=== PATIENT | female | born 1975 | race Caucasian/White ===

== ENCOUNTER 2024-04-11 07:05 | Emergency (ER) | payer MEDICAID, SELFPAY ==
[2024-04-11 07:11] VITALS: BP 115/83; PULSE 91; TEMP 37.1; O2SAT 99; BMI 21.1
--- NOTE | 2024-04-11 07:15 | XR_ITS ---
The [address] [address] Patient Name: GREGORIO ANDERSEN MRN: [id number] date: 1975 Sex: F Assigned Patient Location: ER Current Patient Location: ER Accession/Order Number: [id number] Exam Date: 04/11/2024 07:30 Report Date: 04/11/2024 08:13 At the request of: BARBARA ESPINAL Procedure: XR ankle LT min 3V PROCEDURE: XR ankle LT min 3V DATE: 04/11/2024 6:30 AM CDT COMPARISONS: None CLINICAL INDICATION: Pain, twisted FINDINGS: There is no evidence of fractures or other osseous abnormalities. The ankle mortise is intact. Slightly heterogeneous, prominent soft tissue swelling is noted of the lateral ankle XR/XR ankle LT min 3V IMPRESSION: Left ankle radiographs show no evidence of acute osseous abnormalities. Electronically authenticated by: PORFIRIO SALGADO Date: 04/11/2024 08:13
--- NOTE | 2024-04-11 07:15 | XR_ITS ---
The [address] [address] Patient Name: GREGORIO ANDERSEN MRN: [id number] date: 1975 Sex: F Assigned Patient Location: ER Current Patient Location: ER Accession/Order Number: [id number] Exam Date: 04/11/2024 07:30 Report Date: 04/11/2024 08:11 At the request of: BARBARA ESPINAL Procedure: XR foot RT min 3V PROCEDURE: XR foot RT min 3V DATE: 04/11/2024 6:30 AM CDT COMPARISONS: None CLINICAL INDICATION: Pain, swelling FINDINGS: There is deformity of the proximal fifth metatarsal. Osseous fragments involve approximately a 10 mm area. There are scattered lucencies within the osseous fragments. The findings likely represent comminuted fracture of the most proximal aspect of the fifth metatarsal. It's possible this represents a combination of acute fracture and some old accessory ossicles in this area. Postop changes are noted of the distal first metatarsal No other osseous abnormalities are identified.. XR/XR foot RT min 3V IMPRESSION: Deformity of the most proximal aspect of the fifth metatarsal likely represent slightly distracted minimally displaced acute fracture. It's possible some of the deformity is related to associated old accessory ossicle or ossicles in this area. Electronically authenticated by: PORFIRIO SALGADO Date: 04/11/2024 08:11
--- NOTE | 2024-04-11 07:17 | ED_ITS ---
HPI HPI - Extremity Injury (Lower) General Chief Complaint: Extremity Injury, Lower Stated Complaint: lower extremity injury Time Seen by Provider: 04/11/24 07:11 Source: patient Mode of arrival: Wheelchair Limitations: no limitations History of Present Illness HPI Narrative: 48-year-old female presents to the emergency department for pain in the left ankle and right foot. 6 hours ago she states she twisted it, she was drinking alcohol. She states that alcohol is wearing off and now it is hurting. She has been walking on it and no other injury was sustained. The pain is moderate. She points to the left lateral malleolus and that lateral aspect of the right foot. Related Data Previous Rx's ?Medication ?Instructions ?Recorded acetaminophen 300 mg-codeine 30 mg 1 tab PO Q6H PRN pain 5 days #20 04/11/24 tablet tabs Allergies Allergy/AdvReac Type Severity Reaction Status Date / Time No Known Drug Allergies Allergy Verified 04/11/24 07:13 Opioid HPI Opioid Management Most Recent Pain and Opioid Data: Last ED Pain Assessment 04/11/24 07:14 Review of Systems ROS Narrative A ten point review of systems is negative except as noted above. Exam Narrative Exam Narrative: Nurses note and vital signs reviewed and patient is not hypoxic. General: The patient appears well and in no apparent distress. Patient is resting comfortably on cart. Skin: Warm, dry, no pallor noted. There is no rash noted. Head: Normocephalic, atraumatic Eye: Normal conjunctiva, no drainage Ears, Nose, Mouth, and Throat: oral mucosa is moist. Nares patent. Cardiovascular: Regular Rate and Rhythm Respiratory: Patient is in no distress, no accessory muscle use GI: Nontender Musculoskeletal: Swelling and tenderness present at the left lateral malleolus and the lateral aspect of her right foot. The right ankle is not tender in the left foot is not tender. Neurological: Awake and alert Psychiatric: Cooperative Constitutional Vital Signs, click to edit/add: Last Vital Signs Temp 98.7 F 04/11/24 07:11 Pulse 91 H 04/11/24 07:11 Resp 18 04/11/24 07:11 BP 115/83 04/11/24 07:11 Pulse Ox 99 04/11/24 07:11 O2 Del Method Room Air 04/11/24 07:11 Course Vital Signs Vital signs: Vital Signs Temperature 98.7 F 04/11/24 07:11 Pulse Rate 91 H 04/11/24 07:11 Respiratory Rate 18 04/11/24 07:11 Blood Pressure 115/83 04/11/24 07:11 Pulse Oximetry 99 04/11/24 07:11 Oxygen Delivery Method Room Air 04/11/24 07:11 Temperature 98.7 F 04/11/24 07:11 Pulse Rate 91 H 04/11/24 07:11 Respiratory Rate 18 04/11/24 07:11 Blood Pressure 115/83 04/11/24 07:11 Pulse Oximetry 99 04/11/24 07:11 Oxygen Delivery Method Room Air 04/11/24 07:11 MDM - Extremity Injury (Lower) MDM Narrative Medical decision making narrative: Fifth metatarsal fracture is identified, right foot. She has no previous fracture of that foot. She will follow-up with podiatry and she was prescribed Tylenol 3. Treatment diagnosis and follow-up were discussed with the patient. Short leg posterior splint placed on the right leg for the metatarsal fracture by me. Application checked and she is neurovascularly intact. She is also placed on crutches. Differential Diagnosis Differential diagnosis: Likely ankle sprain and strain, ankle fracture and other (Foot fracture) Imaging Data Foot, ankle: Radiologist's impression: ITS Impressions Ankle X-Ray 04/11/24 07:15 IMPRESSION: Left ankle radiographs show no evidence of acute osseous abnormalities. Electronically authenticated by: PORFIRIO SALGADO Date: 04/11/2024 08:13 Foot X-Ray 04/11/24 07:15 IMPRESSION: Deformity of the most proximal aspect of the fifth metatarsal likely represent slightly distracted minimally displaced acute fracture. It's possible some of the deformity is related to associated old accessory ossicle or ossicles in this area. Electronically authenticated by: PORFIRIO SALGADO Date: 04/11/2024 08:11 Discharge Plan Discharge Stand Alone Forms: Portal Instructions Chief Complaint: Extremity Injury, Lower Clinical Impression: Metatarsal fracture Patient Disposition: Home, Self-Care Time of Disposition Decision: 08:25 Condition: Good Mode of Transportation: Private Vehicle Prescriptions / Home Meds: New acetaminophen-codeine 300-30 mg tablet 1 tab PO Q6H PRN (Reason: pain) 5 Days Qty: 20 0RF Print Language: Monegasque Instructions: Crutch Instructions (ED), Foot Fracture in Adults (ED) Additional Instructions: Follow-up with Dr. Rapp Referrals: Physician,Non-Staff, [Primary Care Provider] - 1 week Jf Rapp DPM [Physician] - 1 week
[2024-04-11 08:35] VITALS: BP 97/63; PULSE 69; O2SAT 100
== END 2024-04-11 08:49 | disposition home or self-care (01) ==
PROVIDERS: Emergency Provider Emergency Medicine
DX: S92.351A Displaced fracture of fifth metatarsal bone, right foot, initial encounter for closed fracture (principal); X50.1XXA Overexertion from prolonged static or awkward postures, initial encounter
CPT/HCPCS: 29515; 73610; 73630; 99283

== ENCOUNTER 2024-04-15 15:28 | Outpatient (OUT) | payer MEDICAID, SELFPAY ==
--- NOTE | 2024-04-15 | XR_ITS ---
The [address] [address] Patient Name: GREGORIO ANDERSEN MRN: [id number] date: 1975 Sex: F Assigned Patient Location: Current Patient Location: Accession/Order Number: [id number] Exam Date: 04/15/2024 15:29 Report Date: 04/16/2024 06:15 At the request of: MAGALIE MUSE Procedure: XR ankle RAJNI min 3V EXAMINATION: XR ankle RAJNI min 3V HISTORY: BILATERAL ANKLE PAIN COMPARISON: XR ankle left 04/03/2024, XR foot right 04/11/2024 FINDINGS: RIGHT FINDINGS: BONES: Corticated ossification adjacent tip of lateral malleolus. Fracture line at base of 5th metatarsal with 1 mm displacement. Intact, uniform ankle joint space. SOFT TISSUES: No visible soft tissue swelling. OTHER: Negative. LEFT FINDINGS: BONES: No significant arthropathy or acute abnormality. SOFT TISSUES: No visible soft tissue swelling. OTHER: Negative. XR/XR ankle RAJNI min 3V IMPRESSION: RIGHT CONCLUSION: 1. Known base of 5th metatarsal fracture without radiographic evidence of bone healing at this time. 2. Separate ossification at tip of lateral malleolus favoring sequela of remote injury. No comparison studies showing this area. LEFT CONCLUSION: 1. No acute or suspicious bone abnormality. Electronically authenticated by: BILLY DEMPSEY Date: 04/16/2024 06:15
--- OUTSIDE RECORDS SUMMARY | 2024-04-15 15:49 | XMS_ITS | CCD ---
Author Organization [facility] Care Team Providers Care Wedding Planner Name Role Phone AMY AMOS Unavailable Unavailable PERLA MONCADA Admitting Unavailable PERLA MONCADA Attending Unavailable MISC, DOCTOR Primary Care Unavailable CORAL, PERLA Admitting Unavailable CORAL, PERLA Attending Unavailable MISC, DOCTOR Primary Care Unavailable OLIVER MARION V Consulting Unavailable JONATHAN RUBIO Consulting Unavailable PERLA MONCADA Consulting Unavailable ARGELIA MACE Consulting Unavailable CORAL, PERLA Admitting Unavailable CORAL, PERLA Attending Unavailable CORAL, PERLA Admitting Unavailable PERLA MONCADA Attending Unavailable MISC, DOCTOR Primary Care Unavailable OLIVER MARION V Consulting Unavailable PERLA MONCADA Consulting Unavailable PROVIDER, UNKNOWN Attending Unavailable PROVIDER, UNKNOWN Admitting Unavailable Problems Active Problems Problem Classification Problem Date Documented Da te Episodic/Chronic Acquired foot deformities (6 sources) Hallux valgus (acquired), right foot; Translations: [Other hammer toe(s) (acquired), right foot] Onset: 09-20-2019 Chronic Acquired foot deformities (1 source) Acquired deformities of toe(s), unspecified, right foot; Translations: [ACQ DEFORMITIES TOES UNS RT FOOT] Onset: 09-29-2019 Episodic Phlebitis; thrombophlebitis and thromboembolism (4 sources) Acute embolism and thrombosis of unspecified deep veins of right lower extremity; Translations: [AC EMBO THROMB UNS DP VNS RT LW EXT] Onset: 10-07-2019 Episodic Substance-related disorders (1 source) Nicotine dependence, cigarettes, uncomplicated; Translations: [NICOTINE DEPEND CIGARETTES UNCOMP] Onset: 09-29-2019 Chronic Unclassified (1 source) Unknown / UNK(Unknown) Onset: 08-25-2017 Past or Other Problems Problem Classification Problem Date Documented Da te Episodic/Chronic Skin and subcutaneous tissue infections (1 source) Cellulitis of right finger; Translations: [Cellulitis of right finger] Onset: 04-11-2017 Episodic Spondylosis; intervertebral disc disorders; other back problems (1 source) Low back pain; Translations: [Low back pain] Onset: 11-14-2017 Episodic Results Test Name Value Interpretation Reference Range Facility US PEDRO DOP LEG RTon 10-07-19 20 US PEDRO DOP LEG RT Patient: NAV ANDERSEN Exam Date: 10/07/2019 : 1975 Gender:F Ordering : DR. PERLA Melton.P.M. Admission #: [id number] Family : Order #: [id number] CLICK HERE TO VIEW EXAM RADIOLOGY REPORT PROCEDURE: ULTRASOUND VENOUS DOPPLER LEG RIGHT COMPARISON: None. INDICATIONS: Acute deep venous thrombosis of right lower extremity; acute right calf pain for 4 days; right bunionectomy 2 weeks ago TECHNIQUE: Lower extremity moy scale and Duplex Doppler evaluation of the deep venous system from the inguinal ligament through the calf veins. FINDINGS: REGION: Right lower extremity. THROMBI: None. COMPRESSIBILITY: Normal compressibility. FLOW: Normal waveform and antegrade flow between 5 and 20 cm/s. *Exam performed in accordance with [facility] practice guidelines- Peripheral venous ultrasound, December 09, 2009. CONCLUSION: 1. No deep vein thrombus in the right leg Dictated by: Oliver Marion M.D. on 10/07/2019 at 12:07 Approved by: Oliver Marion M.D. on 10/07/2019 at 12:07 Normal [facility] PREG HCG QUALon 09-23-2019 , QUAL Negative Normal NEGATIVE [facility] Comment on above: Performed By: #### PREG #### [facility] [address] [place] [address] Fabricio Ford XR FOOT RT 2Von 09-23-2019 XR FOOT RT 2V Patient: YAMILKA ANDERSEN Exam Date: 09/23/2019 : 1975 Gender:F Ordering : DR. PERLA MONCADA D.P.M. Admission #: [id number] Family : Order #: [id number] CLICK HERE TO VIEW EXAM RADIOLOGY REPORT PROCEDURE: RADIOGRAPH FOOT RIGHT 2 VIEWS COMPARISON: None. INDICATIONS: Acquired right hallux valgus. Intraoperative imaging for right first metatarsal Milana bunionectomy. FINDINGS: Two intraprocedural fluoroscopic images demonstrate oblique osteotomy of the distal 1st metatarsal with placement of a single screw. No acute fracture or dislocation. CONCLUSION: 1. Distal 1st metatarsal osteotomy Dictated by: Oliver Marion M.D. on 09/23/2019 at 10:22 Approved by: Oliver Marion M.D. on 09/23/2019 at 10:23 [facility] XR FOOT RT 2V Patient: YAMILKA ANDERSEN Exam Date: 09/23/2019 : 1975 Gender:F Ordering : DR. PERLA YuanPEvangelina Admission #: [id number] Family : Order #: [id number] CLICK HERE TO VIEW EXAM RADIOLOGY REPORT PROCEDURE: RADIOGRAPH FOOT RIGHT 2 VIEWS COMPARISON: XR FOOT RT 2V, 09/23/2019. INDICATIONS: Post operative imaging for right foot bunionectomy FINDINGS: BONES: Osteotomy/bunionectomy of the 1st metatarsal with securement of the fragments via a single screw. SOFT TISSUES: Soft tissue swelling and subcutaneous air at the surgical site. OTHER: Negative. CONCLUSION: 1. Surgical changes which appear stable compared to intraoperative images. Dictated by: Jonathan Rubio M.D. on 09/23/2019 at 11:28 Approved by: Jonathan Rubio M.D. on 09/23/2019 at 11:29 [facility] ED NOTEon 11-14-2017 ED NOTE HNO ID: [id number] thor: Oneil PittsRnMaryellen Nina RNService: (none)Author Type: Registered NurseType: ED NotesFiled: 11/13/2017 11:00 PMNote Text:Discharge instructions reviewed with pt. Pt verbalizes understanding ofinstructions, medications, follow up care and reasons to return to theemergency department. Pt verbalizes understanding by teach back methodand all questions/ concerns answered to the best of my ability. Ptdischarged in stable condition. [facility] ED NOTE HNO ID: [id number] thor: Oneil PittsRn) JERONIMO Ninaervice: (none)Author Type: Registered NurseType: ED NotesFiled: 11/13/2017 10:17 PMNote Text: I have reviewed the ED Triage information and verify it to be accurate.Plan of care-Monitor Patient's Vital Signs for changes in condition-Monitor patient for changes in pain-Maintain patient safety and privacy-Provide comfort measures-Call light in placeSiderails up, bed in locked and low position [facility] ED NOTE HNO ID: [id number] thor: Manuela (Rn) Selene RNService: (none)Author Type: Registered NurseType: ED NotesFiled: 11/13/2017 10:06 PMNote Text:Patient arrived through triage states that she was driving home withfiance to [place] and complains of severe lower back pain unrelieved bytylenol.Plan of care-Monitor Patient's Vital Signs for changes in condition-Monitor patient for changes in pain-Maintain patient safety and privacy-Provide comfort measures-Call light in placeSiderails up, bed in locked and low position [facility] ED PROV NOTEon 11-14-2017 ED PROV NOTE HNO ID: [id number] thor: Kiara Gill) KhalifinoService: Emergency MedicineAuthor Type: Physician AssistantType: ED Provider NotesFiled: 11/13/2017 10:45 PMNote Text:ED Provider NotePatient Name: Nav AndersenMRN: [id number] DATE: 11/13/17HistoryPatient presents with:Back PainHPI Comments: 42 y/o female smoker presents to the ED with right sided lowback pain x 2 days. Pain is constant and worse with movement. She statesit is located right sided and does not radiate. No associated numbness ortingling. Tried tylenol and percocet with only slight improvement. Deniesfevers, chills, saddle anesthesia, bowel incontinence, urinary retention,current IV drug use, history of cancer.History provided by: Patient and medical recordsLanguage gun numberer used: NoNo past medical history on file.No past surgical history on file.No family history on file.Social HistorySocial History Main Topics- Smoking status: Current Every Day Smoker Packs/day: 0.50 Types: Cigarettes- Smokeless tobacco: Never Used- Alcohol use Yes Comment: occasionally- Drug use: Yes Special: Marijuana Comment: occasionally- Sexual activity: Not AskedALLERGIESNo Known AllergiesReview of SystemsConstitutional: Negative for chills and fever.Genitourinary: Negative for difficulty urinating.Musculoskeletal: Positive for back pain. Negative for arthralgias,myalgias, neck pain and neck stiffness.Skin: Negative for rash and wound.Allergic/Immunologic: Negative for immunocompromised state.Neurological: Negative for dizziness, weakness and light-headedness.Physical ExamBP 140/73 Pulse 88 Temp (Src) 97.2 (Temporal Artery) Resp 18 Wt145 lb (65.8kg) SpO2 100% LMP 11/05/2017Physical ExamConstitutional: She is oriented to person, place, and time. She appearswell-developed and well-nourished.Cardiovascular : Intact distal pulses.Musculoskeletal: Cervical back: She exhibits normal range of motion, no tenderness, nobony tenderness and no pain. Thoracic back: She exhibits normal range of motion, no tenderness, nobony tenderness and no pain. Lumbar back: She exhibits decreased range of motion, tenderness andpain. She exhibits no bony tenderness, no deformity and no spasm. Back:Neurological: She is alert and oriented to person, place, and time.Strength and sensation equal bilateral lower extremities. Patellarreflexes equal bilaterally. No gait abnormalities.Skin: Skin is warm. No rash noted.Nursing note and vitals reviewed.Diagnostic TestingED Labs Ordered and Reviewed - No data to displayProceduresMedical Decision Making / ED CourseED [id number] y/o female presents to the ED with right sided low back pain. Vitalsreviewed, afebrile. Medicated with toradol, norflex, lidoderm in the ED.Low suspicion for cauda equina or epidural abscess as patient deniesfevers, chills, saddle anesthesia, bowel incontinence, urinary retention,current IV drug use, history of cancer. Encouraged close follow up withP. Return precautions discussed.Encounter Diagnosis ICD-10-CM1. Acute right-sided low back pain without sciatica M54.5PlanThe Patient was DISCHARGED: Counseled patient regarding suspecteddiagnosis AND need for follow-up. Discharged home with verbal and writteninstructions. They were instructed to return as needed for persistent orworsening symptoms or any new concerns.Given a prescription for the following medication(s): naprosyn, flexerilCondition at time of disposition: stableSIGNATURE: Maykel Wright (Jesus) Linmxrfu50/01/18 5143 [facility] ED NOTEon 08-25-2017 ED NOTE HNO ID: [id number] Author: Sherrie PittsRn) JAG Grubbs Service: Nursing Author Type: Registered Nurse Type: ED Notes Filed: 08/25/2017 9:59 PM Note Text: Called pt, no answer [facility] ED NOTE HNO ID: [id number] Author: Sherrie PittsRn) JAG Grubbs Service: Nursing Author Type: Registered Nurse Type: ED Notes Filed: 08/25/2017 7:56 PM Note Text: Pt called from lobby with no answer. Will try again in 5 minutes. [facility] ED NOTE HNO ID: [id number] thor: Sherrie PittsRn) Ronnell Grubbsice: NursingAuthor Type: Registered NurseType: ED NotesFiled: 08/25/2017 6:59 PMNote Text:Pt has multiple wounds on her left thumb, right axillary area, occipitalregion right side of head. 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 Pt need a PCP.BP 115/75 Pulse (!) 101 Temp (!) 3 ?C (37.4 ?F) (Tympanic) Resp 16 LMP 08/04/2017 SpO2 99%Plan of care-Monitor Patient's Vital Signs for changes in condition-Monitor patient for changes in pain-Maintain patient safety and privacy-Provide comfort measures-Call light in placeSiderails up, bed in locked and low position [facility] ED NOTEon 04-11-2017 ED NOTE HNO ID: [id number] thor: Odilia (Rn) Connie Bustillo: (none)Author Type: Registered NurseType: ED NotesFiled: 04/11/2017 3:01 PMNote Text: Discussed discharge instructions with pt including new prescriptions andimportance of follow up with PCP. Education provided including s/s toreturn to ER. Pt verbalized understanding. Pt resp even and unlabored withno s/s of distress noted. Pt able to speak in complete sentences withoutdifficulty. All questions answered and pt denies any needs at this time.Pt ambulatory with steady gait on departure. [facility] ED NOTE HNO ID: [id number] thor: Odilia PittsRn) Bustillo, RNService: (none)Author Type: Registered NurseType: ED NotesFiled: 04/11/2017 2:09 PMNote Text:Patient presents to the Ed for Right Thumb swelling. Patient states thatabout a week ago she began to have some swelling and pain. Patient statesthat yesterday the swelling got worse. Patient states that she was seen inan ED yesterday and they attempted an IANDD. Patient was given Keflexscript. Today patient states that it is more swollen. Patient states thatshe has had 4 doses of the Keflex.Plan of care-Monitor Patient's Vital Signs for changes in condition-Monitor patient for changes in pain-Maintain patient safety and privacy-Provide comfort measures-Call light in placeSiderails up, bed in locked and low position [facility] ED PROV NOTEon 04-11-2017 ED PROV NOTE HNO ID: [id number] thor: Amy Amos, DOService: Emergency MedicineAuthor Type: PhysicianType: ED Provider NotesFiled: 04/11/2017 2:54 PMNote Text:ED Provider NotePatient Name: Nav VargheseMRN: [id number] DATE: 04/11/17HistoryPatient presents with:Finger Injury: Right thumb swelling.HPI Comments: Complain of right thumb swollen with pain times one weekwith no injury, she thinks she had a hangnail that started all, she wasseen yesterday at another emergency room where they performed an incisionand drainage, placed her on Keflex, she states it still hurts, she hastaken Tylenol and ibuprofen for pain and that is not helping.Patient is a 41 year old female presenting with edema.History provided by: PatientEdemaLocation: Right thumbSeverity: ModerateOnset quality: GradualDuration: 1 weekTiming: ConstantProgression: UnchangedChronicity: NewContext: Right thumb pain, atraumaticWorsened by: Touching itIneffective treatments: Keflex, ibuprofen, TylenolAssociated symptoms: no abdominal pain, no chest pain, no congestion, nocough, no diarrhea, no ear pain, no fatigue, no fever, no headaches, noloss of consciousness, no myalgias, no nausea, no rash, no rhinorrhea, noshortness of breath, no sore throat, no vomiting and no wheezingNo past medical history on file.No past surgical history on file.No family history on file.Social HistorySocial History Main Topics- Smoking status: Not on file- Smokeless tobacco: Not on file- Alcohol use Not on file- Drug use: Not on file- Sexual activity: Not on fileALLERGIESNo Known AllergiesReview of SystemsConstitutional: Negative for fatigue and fever.HENT: Negative for congestion, ear pain, rhinorrhea and sore throat.Eyes: Negative.Respiratory: Negative for cough, shortness of breath and wheezing.Cardiovascular: Negative for chest pain.Gastrointestinal: Negative for abdominal pain, diarrhea, nausea andvomiting.Endocrine: Negative.Genitourinary: Negative.Musculoskeletal: Negative for myalgias. Right thumb pain, infectionSkin: Negative for rash.Neurological: Negative for loss of consciousness and headaches.Physical ExamBP 106/52 Pulse 96 Temp (Src) 98.2 (Oral) Resp 18 Ht 5' 7 (1.70m) Wt 143 lb (64.9kg) SpO2 98% BMI 22.39 kg/(m2).Physical ExamConstitutional: She is oriented to person, place, and time. She appearswell-developed and well-nourished.HENT:Head: Normocephalic and atraumatic.Eyes: Conjunctivae and EOM are normal. Pupils are equal, round, andreactive to light.Neck: Normal range of motion. Neck supple.Cardiovascular: Normal rate, regular rhythm and normal heart sounds.Pulmonary/Chest: Effort normal and breath sounds normal. No respiratorydistress. She has no wheezes. She has no rales.Abdominal: Soft. Bowel sounds are normal. She exhibits no distension.There is no tenderness.Musculoskeletal: Normal range of motion. She exhibits no tenderness.Neurological: She is alert and oriented to person, place, and time.Skin:Right thumb-there is pain to palpation with mild swelling generalized atthe distal aspect of the thumb and more predominate at the medial nailplate, there is slight fluctuance and erythema, there is a healingincision noted just to the nail plate.Psychiatric: She has a normal mood and affect. Her behavior is normal.Nursing note and vitals reviewed.Diagnostic TestingED Labs Ordered and Reviewed - No data to displayProceduresMedical Decision Making / ED CourseED Course patient medical record reviewed.Cellulitis distal aspect of right thumb, changing antibiotic from Keflexto Bactrim for MRSA coverage, follow-up with primary care physician withinone week and return if symptoms change or worsen. Soak in warm water atleast 6-8 times per dayEncounter Diagnosis ICD-10-CM1. Cellulitis of right thumb L03.011PlanThe Patient was dischargedCondition at time of disposition: stableSIGNATURE: Kimberly Mcintosh [facility], DO04/11/17 1438Robasim Melton [facility] DO04/11/17 1454 [facility] Encounters Encounter Date Encounter Type Care Provider Facility Start: 10-07-2019 End: 10-08-2019 Patient encounter procedure PERLA MONCADA Facility:[facility] Start: 10-05-2019 Patient encounter procedure PERLA MONCADA Facility:[facility] Start: 09-23-2019 End: 09-23-2019 Patient encounter procedure PERLA MONCADA Facility:[facility] Start: 09-20-2019 Encounter for other preprocedural examination PERLA MONCADA [facility] Start: 09-10-2019 End: 09-11-2019 Patient encounter procedure PERLA CORAL Facility:[facility] Start: 09-30-2018 End: 10-01-2018 ambulatory UNKNOWN PROVIDER Facility:[facility] Start: 11-14-2017 End: 11-14-2017 Emergency department patient visit [facility] Start: 08-25-2017 End: 08-26-2017 Emergency department patient visit [facility] Start: 04-11-2017 End: 04-11-2017 Emergency department patient visit [place] [facility] Encounter for other preprocedural examination PERLA MONCADA [facility] Procedures Date Procedure Procedure Detail Performing Clinician Start: 09-30-2018 Skin test tuberculos is intradermal UNKNOWN PROVIDER Start: 09-30-2018 Urine test visual color cmprsn meths UNKNOWN PROVIDER Payers Date Payer Category Payer [id number] 2017 [id number] 1975 Unknown [id number] [id number] [id number] 1975 Unknown [id number] 2.16.84 [id number] 1975 Unknown [id number] 2.16.84 [id number] 1977 Unknown [id number] 2.16.84 [id number] 1959 Unknown [id number] 1949 Unknown [id number] Summary Purpose Family History No Family History Records FoundNo Family History Records FoundNo Family History Records Found Advance Directives No Advanced Directives Records FoundNo Advanced Directives Records FoundNo Advanced Directives Records Found Procedure Findings Note OPERATIVE NOTE OPERATION DEJUAN E: 09-23-19 ANESTHETIC:General. 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 POSTOPERATIVE DIAGNOSIS:Same as above. PROCEDURE NAME: 1. Right Milana bunionectomy with screw fixation. 2. Right fifth PIPJ arthroplasty. PATHOLOGY:Bone from right first metatarsal and right fifth digit. HEMOSTASIS:250 mmHg right ankle tourniquet for 61 minutes. ESTIMATED BLOOD LOSS: None. MATERIALS: 3-0 Vicryl, 4-0 Vicryl, 4-0 Nylon, 3.0 mm x 16 mm Litzy titanium Asnis screw. INJECTABLES:10 mL of 0.5% Sensorcaine plain. PROCEDURE: The patient was brought into the OR and placed on the OR table in the supine position. Ankle tourniquet was then placed around the patient's right ankle. Following IV sedation the foot was scrubbed, prepped, and draped in the usual sterile manner. An Esmarch bandage was then utilized to exsanguinate the patient's right foot and tourniquet inflated to 250 mmHg for a total of 61 minutes. Attention was then directed to the first met (more content not included)... Additional Source Comments INFORMATION SOURCE (unrecogn ized section and content) DATE CREATED AUTHOR 03/06/2018 Kelley Martines[facility] al DATE CREATED AUTHOR AUTHOR'S ORGANIZ ATION 11/05/2019 [facility] DATE CREATED AUTHOR AUTHOR'S ORGANIZ ATION 11/04/2021 [employer] FOR RECORDS PERTAINING TO PATIENTS WHO ARE OR HAVE BEEN ENROLLED IN A CHEMICAL DEPENDENCY/SUBSTANCEABUSE PROGRAM, SOME INFORMATION MAY BE OMITTED. This clinical summary was aggregated from multiple sources. Caution should be exercised in using it in the provision of clinical care. This summary normalizes information from multiple sources, and as a consequence, information in this document may materially change the coding, format and clinical context of patient data. In addition, data may be omitted in some cases. CLINICAL DECISIONS SHOULD BE BASED ON THE PRIMARY CLINICAL RECORDS. [facility] [employer], [facility]. provides no warranty or guarantee of the accuracy or completeness of information in this document.
== END 2024-04-15 15:29 | disposition home or self-care (01) ==
LOC: EC 15:29
PROVIDERS: Visit Provider Physician Assistant
DX: M25.571 Pain in right ankle and joints of right foot (principal); M25.572 Pain in left ankle and joints of left foot; S92.354G Nondisplaced fracture of fifth metatarsal bone, right foot, subsequent encounter for fracture with delayed healing
CPT/HCPCS: 73610

== ENCOUNTER 2024-10-13 13:42 | Emergency (ER) | payer SELFPAY ==
[2024-10-13 13:50] VITALS: BP 114/80; PULSE 74; TEMP 36.8; O2SAT 96; BMI 21.9
--- OUTSIDE RECORDS SUMMARY | 2024-10-13 14:05 | XMS_ITS | CCD ---
Author Organization [facility] Care Team Providers Care Broadcast Field Supervisor Name Role Phone AMY AMOS Unavailable Unavailable PERLA MONCADA Admitting Unavailable PERLA MONCADA Attending Unavailable MISC, DOCTOR Primary Care Unavailable PERLA MONCADA Admitting Unavailable PERLA MONCADA Attending Unavailable MISC, DOCTOR Primary Care Unavailable OLIVER MARION V Consulting Unavailable JONATHAN RUBIO Consulting Unavailable PERLA MONCADA Consulting Unavailable ARGELIA MACE Consulting Unavailable PERLA MONCADA Admitting Unavailable PERLA MONCADA Attending Unavailable PERLA MONCADA Admitting Unavailable PERLA MONCADA Attending Unavailable MISC, DOCTOR Primary Care Unavailable OLIVER MARION V Consulting Unavailable PERLA MONCADA Consulting Unavailable PROVIDER, UNKNOWN Attending Unavailable PROVIDER, UNKNOWN Admitting Unavailable Otto BAE Attending Unavailable Medications Current Medications Medication Drug Class(es) Dates Sig (Normalized) Sig (Original) amoxicillin 875 mg / clavulanate 125 mg oral tablet (1 source) Penicillin-class Antibacterial Start: 05-16-2024 take 1 tablet by mouth every twelve hours Amoxicillin-Pot Clavulanate Active 1 TAB PO Every 12 hours 04 07May 16, 2024 12:00am ibuprofen 800 mg oral tablet (2 sources) Nonsteroidal Anti-inflammatory Drug Start: 05-16-2024 take 800 mg by mouth every eight hours Ibuprofen Active 800 MG PO Every 8 hours 30 May 16, 2024 12:00am Start: 04-29-2018 End: 05-16-2024 take 600 mg by mouth every eight hours Ibuprofen Discontinued 600 MG PO Q8H April 29, 2018 12:00am May 16, 2024 11:06am Lidocaine (1 source) Antiarrhythmic, Amide Local Anesthetic Start: 05-16-2024 Lidocaine Hcl (Lidocaine Viscous) 2 % solution Active 1 APPLIC MUCOUS MEM Three times daily 100 May 16, 2024 12:00am meloxicam 15 mg oral tablet (1 source) Nonsteroidal Anti-inflammatory Drug Start: 05-16-2024 Meloxicam Active MG PO May 16, 2024 12:00am traMADol hydrochloride 50 mg oral tablet (1 source) Opioid Agonist Start: 05-16-2024 take 50 mg by mouth every six hours Tramadol Active 50 MG PO Every 6 hours 12 3 May 16, 2024 12:00am Completed/Discontinued Medications Medication Drug Class(es) Dates Sig (Normalized) Sig (Original) acetaminophen 325 mg / HYDROcodone bitartrate 5 mg oral tablet (1 source) Opioid Agonist Start: 04-29-2018 End: 05-16-2024 take 1 tablet by mouth every four hours Hydrocodone-Acetami nophen ([place]) 5-325 mg tablet Discontinued 1 TAB PO Q4H 7 April 29, 2018 May 16, 2024 11:06am Problems Active Problems Problem Classification Problem Date Documented Da te Episodic/Chronic Acquired foot deformities (6 sources) Hallux valgus (acquired), right foot; Translations: [Other hammer toe(s) (acquired), right foot] Onset: 09-20-2019 Chronic Acquired foot deformities (1 source) Acquired deformities of toe(s), unspecified, right foot; Translations: [ACQ DEFORMITIES TOES UNS RT FOOT] Onset: 09-29-2019 Episodic Disorders of teeth and jaw (4 sources) Dental abscess; Translations: [Periapical abscess without sinus] 05-16-2024 Episodic Phlebitis; thrombophlebitis and thromboembolism (4 sources) [...] : 1975 Gender:F Ordering : DR. PERLA YuanPLaliM. Admission #: [id number] Family : Order #: [id number] CLICK HERE TO VIEW EXAM RADIOLOGY REPORT [...] M.D. on 10/07/2019 at 12:07 Normal [facility] PREG HCG QUALon 09-23-2019 , QUAL Negative Normal NEGATIVE [facility] Comment on above: Performed By: #### PREG #### [facility] [address] [place] [address] Fabricio Ford XR FOOT RT 2Von 09-23-2019 XR FOOT RT 2V Patient: YAMILKA ANDERSEN Exam Date: 09/23/2019 : 1975 Gender:F Ordering : DR. PERLA YuanP.M. Admission #: [id number] Family : Order #: [id number] CLICK HERE TO VIEW EXAM RADIOLOGY REPORT [...] Oliver Marion M.D. on 09/23/2019 at 10:23 [facility] XR FOOT RT 2V Patient: YAMILKA ANDERSEN Exam Date: 09/23/2019 : 1975 Gender:F Ordering : DR. PERLA MONCADA DLaliP.MLali Admission #: [id number] Family : Order #: [id number] CLICK HERE TO VIEW EXAM RADIOLOGY REPORT [...] Jonathan Rubio M.D. on 09/23/2019 at 11:29 [facility] ED NOTEon 11-14-2017 ED NOTE HNO ID: [id number] thor: Oneil PittsRnMaryellen Nina, RNService: (none)Author Type: Registered NurseType: ED NotesFiled: 11/13/2017 11:00 PMNote Text:Discharge instructions reviewed with pt. Pt verbalizes understanding ofinstructions, medications, follow up care and reasons to return to theemergency department. Pt verbalizes understanding by teach back methodand all questions/ concerns answered to the best of my ability. Ptdischarged in stable condition. [facility] ED NOTE HNO ID: [id number] thor: Oneil PittsRn) Kelle, RNService: (none)Author Type: Registered NurseType: ED NotesFiled: 11/13/2017 10:17 PMNote Text: I have reviewed the ED Triage information and verify it to be accurate.Plan of care-Monitor Patient's Vital Signs for changes in condition-Monitor patient for changes in pain-Maintain patient safety and privacy-Provide comfort measures-Call light in placeSiderails up, bed in locked and low position [facility] ED NOTE HNO ID: [id number] thor: Manuela (Jag) JERONIMO Mortonervice: (none)Author Type: Registered NurseType: ED NotesFiled: 11/13/2017 10:06 PMNote Text:Patient arrived through triage states that she was driving home withfiance to [email or web address] and complains of severe lower back pain unrelieved bytylenol.Plan of care-Monitor Patient's Vital Signs for changes in condition-Monitor patient for changes in pain-Maintain patient safety and privacy-Provide comfort measures-Call light in placeSiderails up, bed in locked and low position [facility] ED PROV NOTEon 11-14-2017 ED PROV NOTE HNO ID: [id number] thor: Kiara Gill) SeverinoService: Emergency MedicineAuthor Type: Physician AssistantType: ED Provider NotesFiled: 11/13/2017 10:45 PMNote Text:ED Provider NotePatient Name: Nav AndersenMRN: [id number] DATE: 11/13/17HistoryPatient presents with:Back PainHPI Comments: 42 [...] cancer.History provided by: Patient and medical recordsLanguage sequins stringer used: NoNo past medical history on file.No [...] to displayProceduresMedical Decision Making / ED CourseED [id number] y/o female presents to the ED with right sided low back pain. Vitalsreviewed, afebrile. Medicated with toradol, norflex, lidoderm in the ED.Low suspicion for cauda equina or epidural abscess as patient deniesfevers, chills, saddle anesthesia, bowel incontinence, urinary retention,current IV drug use, history of cancer. Encouraged close follow up withPCP. Return precautions discussed.Encounter Diagnosis ICD-10-CM1. Acute right-sided low back pain without sciatica M54.5PlanThe Patient was DISCHARGED: Counseled patient regarding suspecteddiagnosis AND need for follow-up. Discharged home with verbal and writteninstructions. They were instructed to return as needed for persistent orworsening symptoms or any new concerns.Given a prescription for the following medication(s): naprosyn, flexerilCondition at time of disposition: stableSIGNATURE: Maykel Wright) Vukloxdn26/01/18 0732 [facility] ED NOTEon 08-25-2017 ED NOTE HNO ID: [id number] Author: Sherrie (Rn) Humera RN Service: Nursing Author Type: Registered Nurse Type: ED Notes Filed: 08/25/2017 9:59 PM Note Text: Called pt, no answer [facility] ED NOTE HNO ID: [id number] Author: Sherrie (Rn) JAG Grubbs Service: Nursing Author Type: Registered Nurse Type: ED Notes Filed: 08/25/2017 7:56 PM Note Text: Pt called from lobby with no answer. Will try again in 5 minutes. [facility] ED NOTE HNO ID: [id number] thor: Sherrie (Rn) JERONIMO Grubbservice: NursingAuthor Type: Registered NurseType: ED NotesFiled: 08/25/2017 [...] up, bed in locked and low position [facility] ED NOTEon 04-11-2017 ED NOTE HNO ID: [id number] thor: Odilia PittsRn) Connie Bustillo: (none)Author Type: Registered NurseType: ED [...] time.Pt ambulatory with steady gait on departure. [facility] ED NOTE HNO ID: [id number] thor: Odilia PittsRn) Connie Bustillo: (none)Author Type: Registered NurseType: ED [...] up, bed in locked and low position [facility] ED PROV NOTEon 04-11-2017 ED PROV NOTE HNO ID: [id number] thor: Amy Amos, DOService: Emergency MedicineAuthor Type: PhysicianType: ED Provider NotesFiled: 04/11/2017 2:54 PMNote Text:ED Provider NotePatient Name: Nav VargheseMRN: [id number] DATE: 04/11/17HistoryPatient presents with:Finger Injury: Right thumb [...] dischargedCondition at time of disposition: stableSIGNATURE: Kimberly Mcintosh, DO04/11/17 1438Amy Amos, DO04/11/17 1454 [facility] Vital Signs Date Time Vital Sign Value Performing Clinician Faci lity 05-16-2024 11:15-0400 Body height 170.18 cm [facility] 05-16-2024 11:15-0400 Body mass index (BMI) [Ratio] 22.1 kg/m2 [facility] 05-16-2024 11:15-0400 Body temperature 98.1 [degF] [facility] 05-16-2024 11:15-0400 Body weight 64.12 kg [facility] 05-16-2024 11:15-0400 Diastolic blood pressure 79 mm[Hg] [facility] 05-16-2024 11:15-0400 Heart rate 73 /min [facility] 05-16-2024 11:15-0400 Respiratory rate 18 /min [facility] 05-16-2024 11:15-0400 SaO2% (BldA) [Mass fraction] 98 % [facility] 05-16-2024 11:15-0400 Systolic blood pressure 132 mm[Hg] [facility] Encounters Encounter Date Encounter Type Care Provider Facility Start: 05-20-2024 End: 05-20-2024 ambulatory [facility] Facility:[facility] Start: 05-16-2024 End: 05-16-2024 ambulatory [facility] Work Phone: Start: 05-16-2024 End: 05-16-2024 Patient encounter procedure [facility] Work Phone: Start: 10-07-2019 End: 10-08-2019 Patient encounter procedure PERLA MONCADA Facility:[facility] Start: 10-05-2019 Patient encounter procedure PERLA MONCADA Facility:[facility] Start: 09-23-2019 End: 09-23-2019 Patient encounter procedure PERLA MONCADA Facility:[facility] Start: 09-20-2019 Encounter for other preprocedural examination PERLA MONCADA [facility] Start: 09-10-2019 End: 09-11-2019 Patient encounter procedure PERLA MONCADA Facility:[facility] Start: 09-30-2018 End: 10-01-2018 ambulatory UNKNOWN PROVIDER Facility:[facility] Start: 11-14-2017 End: 11-14-2017 Emergency department patient visit [facility] Start: 08-25-2017 End: 08-26-2017 Emergency department patient visit [facility] Start: 04-11-2017 End: 04-11-2017 Emergency department patient visit [facility] Encounter for other preprocedural examination PERLA MONCADA [facility] Procedures Date Procedure Procedure Detail Performing Clinician Start: 09-30-2018 Skin test tuberculos is intradermal UNKNOWN PROVIDER Start: 09-30-2018 Urine test visual color cmprsn meths UNKNOWN PROVIDER Payers Date Payer Category Payer [employer] [id number] 2017 [employer] [id number] 1975 Unknown [id number] 3 1975 Unknown [id number] 3 1975 Unknown [id number] 3 1975 Unknown [id number] 3 1959 Unknown [id number] 1949 Unknown [id number] 2 Medicaid Anthem [place] Medicaid [id number] Self-pay Self Pay [id number] Social History Date Type Detail Facility Start: 04-28-2018 Tobacco smoking stat us NHIS Smoker (finding) [facility] Start: 1975 Sex Assigned At Female F [facility] Evaluation note Note Date & Type Note Facility Evaluation note Diagnosis Onset Date Dental abscess acute Pain in upper jaw acute [facility] Work Phone: Summary Purpose Family History No Family History Records FoundNo Family History Records FoundNo Family History Records FoundNo Family History Records Found Advance Directives No Advanced Directives Records Found Advance Directive Response Recorded Date/ Time Advance Directives No April 28, 2018 11:47pm Procedure Findings Note OPERATIVE NOTE OPERATION DEJUAN [...] the first met (more content not included)... Chief Complaint and Reason for Visit Chief Complaint right side tooth lyubov n Reason for Visit Dental abscess Pain in upper jaw Additional Source Comments INFORMATION SOURCE (unrecogn ized section and content) DATE CREATED AUTHOR 03/06/2018 [facility] DATE CREATED AUTHOR AUTHOR'S ORGANIZ ATION 11/05/2019 [facility] DATE CREATED AUTHOR AUTHOR'S ORGANIZ ATION 11/04/2021 [facility] DATE CREATED AUTHOR AUTHOR'S ORGANIZ ATION 05/22/2024 [facility] Care Teams (unrecognized sec tion and content) Team Status: Active Member Role Status Dates NON STAFF Primary Care Provider Active Team Status: Inactive Member Role Status Dates Valerie España APRN Attending Provider Active Start: May 16, 2024 End: May 16, 2024 NON STAFF Primary Care Provider Active Start: May 16, 2024 End: May 16, 2024 Goals (unrecognized section and content) Goals may be documented in a n alternate section FOR RECORDS PERTAINING TO PATIENTS WHO ARE [...] BE BASED ON THE PRIMARY CLINICAL RECORDS. [employer] provides no warranty or guarantee of the accuracy or completeness of information in this document.
[2024-10-13 14:41] LABS: Influenza Virus A Antigen Negative; Influenza Virus B Antigen Negative; Internal Control Within Normal Limits; SARS-CoV-2 Ag NEGATIVE (NEGATIVE)
--- NOTE | 2024-10-13 14:52 | ED.RECABL1 ---
HPI - Recheck/Abnormal Lab/Rx General Chief Complaint: Recheck/Abnormal Lab/Rx Stated Complaint: HEADACHE DIZZINESS Time Seen by Provider: 10/13/24 13:54 Mode of arrival: walk-in History of Present Illness HPI narrative: Patient presents to ED complaining of not feeling well. Patient states that she started with upper respiratory viral syndrome for the past week. She has missed a couple of days of work and she supposed to go back tonight. Patient states that work will not let her come back until she has a work note clearing her and stating that she was sick. Patient still having mild congestion and not feeling fully back to normal but she said mostly she is feeling better. She said the past couple of days it was much worse. Vital signs stable no respiratory distress no hypoxia. Patient is alert and oriented no acute distress. Related Data Previous Rx's ?Medication ?Instructions ?Recorded acetaminophen 300 mg-codeine 30 mg 1 tab PO Q6H PRN pain 5 days #20 04/11/24 tablet tabs Allergies Allergy/AdvReac Type Severity Reaction Status Date / Time No Known Drug Allergies Allergy Verified 04/11/24 07:13 Review of Systems ROS Status of ROS 10 or more systems reviewed and unremarkable except as noted in history and below PFSH PFSH Social History Little interest or pleasure in doing things: not at all Feeling down, depressed, or hopeless: not at all Exam Narrative Exam Narrative: Time Seen: [] Vital Signs: [Per nurse's notes.] General: [Alert] Skin: [Warm, dry, no rash.] Head: [Normocephalic, atraumatic.] Neck: [Supple, trachea midline.] Eye: [Pupils are equal, round and reactive to light, extraocular movements are intact, normal conjunctiva.] Ears, nose, mouth and throat: oral mucosa moist. Cardiovascular: [Regular rate and rhythm, no murmur.] Respiratory: [Lungs are clear to auscultation, respirations are non-labored, breath sounds are equal.] Gastrointestinal: [Soft, nontender, non distended, normal bowel sounds.] MSK: 5 out of 5 muscle strength x 4 extremities no calf pain or edema Psychiatric: [Cooperative, appropriate mood & affect.] Neurological: [Alert and oriented to person, place, time, and situation, no focal neurological deficit observed.] Constitutional Vital Signs, click to edit/add: Last Vital Signs Temp 98.2 F 10/13/24 13:50 Pulse 74 10/13/24 13:50 Resp 18 10/13/24 13:50 BP 114/80 10/13/24 13:50 Pulse Ox 96 10/13/24 13:50 O2 Del Method Room Air 10/13/24 13:50 Course Vital Signs Vital signs: Vital Signs Temperature 98.2 F 10/13/24 13:50 Pulse Rate 74 10/13/24 13:50 Respiratory Rate 18 10/13/24 13:50 Blood Pressure 114/80 10/13/24 13:50 Pulse Oximetry 96 10/13/24 13:50 Oxygen Delivery Method Room Air 10/13/24 13:50 Temperature 98.2 F 10/13/24 13:50 Pulse Rate 74 10/13/24 13:50 Respiratory Rate 18 10/13/24 13:50 Blood Pressure 114/80 10/13/24 13:50 Pulse Oximetry 96 10/13/24 13:50 Oxygen Delivery Method Room Air 10/13/24 13:50 MDM - Recheck/Abnormal Lab/Rx Lab Data Labs: Lab Results 10/13/24 Range/Units 14:22 Influenza Type A Ag Negative Influenza Type B Ag Negative SARS-CoV-2 Ag (CV2AG) Negative (NEGATIVE) Discharge Plan Discharge Chief Complaint: Recheck/Abnormal Lab/Rx Clinical Impression: Acute viral syndrome Patient Disposition: Home, Self-Care Time of Disposition Decision: 14:48 Condition: Good Mode of Transportation: Private Vehicle Prescriptions / Home Meds: No Action acetaminophen-codeine 300-30 mg tablet 1 tab PO Q6H PRN (Reason: pain) 5 Days Qty: 20 0RF Print Language: Hungarian Instructions: Viral Syndrome (ED) Referrals: Physician,Non-Staff, MD [Primary Care Provider] - 1 week
== END 2024-10-13 15:03 | disposition home or self-care (01) ==
PROVIDERS: Emergency Provider Emergency Medicine
DX: B34.9 Viral infection, unspecified (principal)
CPT/HCPCS: 87804; 87811; 99284

== ENCOUNTER 2025-01-10 16:50 | Outpatient (OUT) | payer OTHER, SELFPAY ==
--- NOTE | 2025-01-10 | XR_ITS ---
[address] [address] Patient Name: GREGORIO ANDERSEN MRN: [id number] date: 1975 Sex: F Assigned Patient Location: [facility] Current Patient Location: [facility] Accession/Order Number: [id number] Exam Date: 01/10/2025 17:53 Report Date: 01/10/2025 17:53 At the request of: FREDERICK SIDDIQI NP Procedure: XR cervical spine 5V CERVICAL SPINE 5 views: CLINICAL HISTORY: cervical pain M54.2 COMPARISON: None FINDINGS: Vertebral body heights appear maintained. Mild spondylosis C5-6. Oblique views demonstrate no severe bony neural foraminal narrowing. Mild diffuse facet joint degenerative changes. No prevertebral soft tissue swelling. XR/XR cervical spine 5V IMPRESSION: MILD SPONDYLOSIS C5-6. Impression dictated by: Miguel Odom Jr., D.O. 01/10/2025 5:53 PM Dictation Location: [place] [address] Electronically authenticated by: [id number] Y Date: 01/10/2025 17:53
--- NOTE | 2025-01-10 | XR_ITS ---
The [address] [address] Patient Name: GREGORIO ANDERSEN MRN: [id number] date: 1975 Sex: F Assigned Patient Location: [facility] Current Patient Location: [facility] Accession/Order Number: [id number] Exam Date: 01/10/2025 17:51 Report Date: 01/10/2025 17:53 At the request of: FREDERICK SIDDIQI NP Procedure: XR hand RAJNI min 3v Bilateral hand series 3 views each. Reason for exam: Chronic hand pain. COMPARISON: None. FINDINGS: No focal soft tissue abnormality or acute bony process. Right hand demonstrates degenerative changes involving the carpus with moderate degenerative changes involving the scaphotrapezial joint and CMC joint of the thumb. IP joints appear maintained. No bony erosions. Severe degenerative changes are seen involving the CMC joint of the thumb. IP joints appear preserved. No bony erosions. XR/XR hand RAJNI min 3v Impression: Degenerative changes of both hands, most severe at the CMC joint of the thumb involving the left hand. Impression dictated by: Lissy Cohn Jr.OLali 01/10/2025 5:53 PM Dictation Location[facility] Electronically authenticated by: [id number] Y Date: 01/10/2025 17:53
== END 2025-01-10 16:51 | disposition home or self-care (01) ==
LOC: RAD 16:50
DX: M79.641 Pain in right hand (principal); M79.642 Pain in left hand; M54.2 Cervicalgia; M19.042 Primary osteoarthritis, left hand; M19.041 Primary osteoarthritis, right hand; M47.812 Spondylosis without myelopathy or radiculopathy, cervical region
CPT/HCPCS: 72050; 73130